=== PATIENT | female | born 1955 | race Caucasian/White ===

== ENCOUNTER 2022-02-03 12:36 | Emergency (ER) | payer MEDICARE, OTHER ==
[~2022-02-03] VITALS: Ht 157.5 cm; Wt 49.8 kg
[~2022-02-03 12:36] MED LIST: ALPR0.5T; PREMARIN
[2022-02-03 15:40] VITALS: BP 133/80
[2022-02-03 15:41] LABS: Urine Bacteria MANY /hpf (None Seen); Urine Blood 1+ /uL (Negative); Urine Hyaline Cast FEW /lpf (0 - 2); Urine WBC 161 /hpf (0 - 5); Urine WBC Clumps PRESENT /hpf (None Seen)
[2022-02-03] MEDS ORDERED: CIPR-173 PO (15:49)
== END 2022-02-03 17:14 | disposition home or self-care (01) ==
LOC: ER 12:41
DX: G44.209 Tension-type headache, unspecified, not intractable (principal); N39.0 Urinary tract infection, site not specified; Z90.710 Acquired absence of both cervix and uterus; Z98.51 Tubal ligation status; Z88.6 Allergy status to analgesic agent
CPT/HCPCS: 70450; 81001